=== PATIENT | male | born 1945 | race Caucasian/White ===

== ENCOUNTER 2019-02-16 10:21 | Emergency (ER) | payer MEDICARE, OTHER ==
[~2019-02-16] VITALS: Ht 172.7 cm; Wt 140.0 kg
[2019-02-16] MEDS ORDERED: SERT50TA12 PO (11:01)
[2019-02-16] MEDS ORDERED: TACR.5 PO (11:01)
[2019-02-16] MEDS ORDERED: CALC0.253 PO (11:01)
[2019-02-16] MEDS ORDERED: METO25 PO (11:01)
[2019-02-16] MEDS ORDERED: PRED10 PO (11:01)
[2019-02-16] MEDS ORDERED: [UNRECOGNIZED DRUG - CODE] PO (11:06)
[2019-02-16] MEDS ORDERED: INSU100V SQ (11:06)
[2019-02-16] MEDS ORDERED: MYCO250C7 PO (11:06)
[2019-02-16] MEDS ORDERED: CARV6 PO (11:06)
[2019-02-16] MEDS ORDERED: TRAM50TA4 PO (11:06)
[2019-02-16] MEDS ORDERED: INSLAN SQ (11:06)
[2019-02-16] MEDS ORDERED: ATOR40TA28 PO (11:06)
[2019-02-16] MEDS ORDERED: TAMSULOSIN HCL 0.4 MG CAPSULE PO ONE (12:30)
[2019-02-16 13:02] LABS: APPEARANCE,URINE CLOUDY (CLEAR); BILIRUBIN,URINE NEGATIVE (NEGATIVE); GLUCOSE, URINE (UA) NEGATIVE (NEGATIVE); KETONES,URINE NEGATIVE (NEGATIVE); LEUKOCYTE ESTERASE ,URINE SMALL (NEGATIVE); NITRATE,URINE POSITIVE (NEGATIVE); OCCULT BLOOD,URINE LARGE (NEGATIVE); PH,URINE 7.5 (5.0-8.0); PROTEIN,URINE SEE CONFIRM (NEGATIVE)
[2019-02-16 13:12] LABS: BACTERIA,URINE Moderate /HPF (None Seen); RBC,URINE 26-50 /HPF (0-2); SULFOSALICYLIC ACID,URINE 3+ (Negative)
[2019-02-16] MEDS ORDERED: CIPROFLOXACIN HCL 250 MG TABLET PO ONE (13:30)
[2019-02-16 15:00] VITALS: BP 130/73
== END 2019-02-16 15:20 | disposition home or self-care (01) ==
LOC: EMS 10:22
DX: R33.9 Retention of urine, unspecified (principal); N39.0 Urinary tract infection, site not specified; E11.22 Type 2 diabetes mellitus with diabetic chronic kidney disease; I12.9 Hypertensive chronic kidney disease with stage 1 through stage 4 chronic kidney disease, or unspecified chronic kidney disease; N18.9 Chronic kidney disease, unspecified; I48.91 Unspecified atrial fibrillation; E11.319 Type 2 diabetes mellitus with unspecified diabetic retinopathy without macular edema; K21.9 Gastro-esophageal reflux disease without esophagitis; Z79.899 Other long term (current) drug therapy; Z79.4 Long term (current) use of insulin
CPT/HCPCS: 51702; 87086